=== PATIENT | male | born 1990 ===

== ENCOUNTER 2024-12-09 10:39 | Outpatient (REF) | payer OTHER, SELFPAY ==
--- OUTSIDE RECORDS SUMMARY | 2024-12-10 11:19 | XMS_ITS | Clinical Summary ---
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 Name Role Phone Physician, No Pcp Primary Care Provider Unavaila ble Allergies No known active allergies Social History Tobacco Use Types Packs/Day Years Used Date Smoking Tobacco: Never Assessed Sex and Gender Information Value Date Recorded Sex Assigned at Not on file Legal Sex Male 4:21 PM EST Gender Identity Not on file Sexual Orientation Not on file Obstetrics History Last Filed Vital Signs Vital Sign Reading Time Taken Comments Blood Pressure 172/106 06/11/2024 7:57 PM EST Pulse 63 06/11/2024 7:53 PM EST Temperature 36.6 C (97.9 F) 06/11/2024 7:53 PM EST Respiratory Rate 20 06/11/2024 7:53 PM EST Oxygen Saturation 99% 06/11/2024 7:53 PM EST Inhaled Oxygen Concentration - - Weight 113 kg (250 lb) 06/11/2024 4:34 PM EST Height 188 cm (6' 2 ) 06/11/2024 4:34 PM EST Body Mass Index 32.1 06/11/2024 4:34 PM EST Plan of Treatment Health Maintenance Due Date Last Done Comments Hepatitis B Vaccines (1 of 3 - 19+ 3-dose series) 12/20/2007 Pneumococcal Vaccine: Pediat rics (0 to 5 Years) and At-Risk Patients (6 to 49 Years) (1 of 2 - PCV) 12/20/2007 DTaP,Tdap,and Td Vaccines (2 - Td or Tdap) 02/04/2022 02/05/2012 COVID-19 Vaccine ( - 2023-2 5 season) 2024 Depression Screening 05/06/2024 Cholesterol Screening (Lipid Panel) 06/12/2024 HIV Screening 06/12/2024 Hepatitis C Screening 06/12/2024 Social Influencers of Health Screening 06/12/2024 Influenza Vaccine (#1) 2025 HIB Vaccines Aged Out No longer eligi ble based on patient's age to complete this topic HPV Vaccines Aged Out No longer eligi ble based on patient's age to complete this topic Hepatitis A Vaccines Aged Out No long er eligible based on patient's age to complete this topic IPV Vaccines Aged Out No longer eligi ble based on patient's age to complete this topic MMR Vaccines Aged Out No longer eligi ble based on patient's age to complete this topic Meningococcal ACWY Vaccine Aged Out N o longer eligible based on patient's age to complete this topic Meningococcal B Vaccine Aged Out No l onger eligible based on patient's age to complete this topic RSV Immunization Patients Un parul 20 months Aged Out No longer eligible b ased on patient's age to complete this topic Varicella Vaccines Aged Out No longer eligible based on patient's age to complete this topic Insurance [employer] [address] [place] [address] [employer] Care Teams 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
== END 2024-12-09 10:40 | disposition home or self-care (01) ==
LOC: HO.HOSX 10:39
PROVIDERS: Visit Provider Physician Assistant
DX: Z13.89 Encounter for screening for other disorder (principal)